=== PATIENT | male | born 1945 | race Caucasian/White ===

== ENCOUNTER 2017-12-25 20:12 | Emergency (ER) | payer OTHER ==
[2017-12-25 20:43] VITALS: BP 143/75
[2017-12-25] MEDS ORDERED: Cephalexin CAP* 500 MG PO ONE ×2 (21:04→21:06)
--- NOTE | 2017-12-25 21:15 | UC ---
Philip Muñoz Natalie, scribed for Asher Rolle MD on 12/25/17 at 2110 . Upper Extremity HPI - HPI Summary HPI Summary: The pt is a 72 y/o M presenting to c/o left fifth finger pain and upper respiratory problems starting 12/24/17. He was working with cardboard on when he noticed tingling, swelling, and redness in his left fifth finger the next day. He also started to have a deep cough and diaphoresis at the same time. The pain is rated 6/10. The patient has treated his finger pain with tea tree oil [employer]. Pt denies sore throat and ear ache. He has an appointment with his PCP tomorrow. - History of Current Complaint Chief Complaint: UCUpperExtremity Stated Complaint: COUGH,FINGER COMPLAINT Time Seen by Provider: 12/25/17 20:50 Hx Obtained From: Patient Onset/Duration: Sudden Onset, Lasting Days - started 12/24/17, Still Present Severity Initially: Moderate Severity Currently: Moderate Pain Intensity: 6 Pain Scale Used: 0-10 Numeric Location Of Pain: Is Discrete @ - left pinky Aggravating Factor(s): Nothing Alleviating Factor(s): Nothing Associated Signs And Symptoms: Positive: Swelling, Redness, Numbness/Tingling, Other - POSITIVE: deep cough, diaphoresis; NEGATIVE: sore throat, ear ache - Allergies/Home Medications Allergies/Adverse Reactions: Allergies Allergy/AdvReac Type Severity Reaction Status Date / Time No Known Allergies Allergy Verified 08/27/16 12:09 PMH/Surg Hx/FS Hx/Imm Hx - Surgical History Surgical History: Yes Surgery Procedure, Year, and Place: 1981 right knee. hernia 2017 - Family History Known Family History: Negative: Cardiac Disease, Diabetes - Social History Alcohol Use: Weekly Alcohol Amount: 1-2 GLASSES WINE DAILY Substance Use Type: None Smoking Status (MU): Never Smoked Tobacco Review of Systems ENT: Other - NEGATIVE: sore throat, ear ache Respiratory: Cough Musculoskeletal: Other: - pain, swelling, and redness in left pinky All Other Systems Reviewed And Are Negative: Yes Physical Exam Triage Information Reviewed: Yes Appearance: Well-Appearing, No Pain Distress Vital Signs: Initial Vital Signs Temp 100.9 F 12/25/17 20:35 Pulse 92 12/25/17 20:35 Resp 16 12/25/17 20:35 BP 143/75 12/25/17 20:35 Pulse Ox 98 12/25/17 20:35 Vital Signs Reviewed: Yes Eye Exam: Normal ENT Exam: Normal Neck: Positive: Supple, Nontender Respiratory: Positive: Other: - CTA, breath sounds present Cardiovascular: Positive: RRR Abdomen Description: Positive: Nontender, Soft Bowel Sounds: Positive: Present Musculoskeletal: Positive: Strength Intact, ROM Intact, Other: - Left fifth finger erythema on dorsal aspect proximal to fingernail, no drainable fluid collection, some swelling of mid fifth finger, no streaking Neurological: Positive: Other: - normal, sensory/motor intact, A&O x3 Psychological: Positive: Other: - affect/mood appropriate Skin: Positive: Other - warm, color reflects adequate perfusion, dry Upper Extremity Course/Dx - Course Course Of Treatment: NO STREAKING OF THE FINGER INFECTION. DISCUSSED GETTING RE EVAL RIGHT AWAY IF THE FINGER INFECTIN WORSENS. - Differential Dx/Diagnosis Provider Diagnoses: LEFT 5TH FINGER CELLULITIS Discharge - Discharge Plan Condition: Stable Disposition: HOME Prescriptions: Cephalexin CAP* [Keflex CAP*] 500 mg PO QID #37 cap Patient Education Materials: Cellulitis (ED) Referrals: [facility] [Outside] Iban Thomas MD [Medical Doctor] - Gabriela Sims MD [Primary Care Provider] - Additional Instructions: FOLLOW UP WITH YOUR DOCTOR. IF YOUR FINGER INFECTION GETS WORSE, FOLLOW UP WITH ORTHOPEDICS OR GO TO THE EMERGENCY DEPARTMENT. GET RECHECKED FOR ANY WORSENING OF YOUR CONDITION OR QUESTIONS OR CONCERNS. The documentation as recorded by the Philip flaherty Natalie accurately reflects the service I personally performed and the decisions made by me, Asher Rolle MD.
== END 2017-12-25 21:28 | disposition home or self-care (01) ==
LOC: UCEAST 20:12
DX: L03.012 Cellulitis of left finger (principal); R05 Cough
CPT/HCPCS: 99212; A9270-GY; G0463

== ENCOUNTER 2017-12-30 18:16 | Emergency (ER) | payer OTHER ==
[2017-12-30 18:47] VITALS: BP 143/74
--- NOTE | 2018-01-03 15:39 | UC ---
Donovan Muñoz Nikita, scribed for Sara Lopez MD on 12/30/17 at 1919 . Respiratory Complaint HPI - HPI Summary HPI Summary: Pleasant 72 yo gentleman c/o cough, ongoing x approx 5 days. Presents today reporting that spouse wanted him to get checked out. No sob perse except with cough. No chest pain. + mild productive, color (), no report of hemoptysis. No rash. No GI issues, although taking abx 4x / day, some loose stool. Abx are 2/2 L 5th finger cellulitis (seen in [facility] 12/25/17, taking cephalexin 50mg po qid). - History of Current Complaint Chief Complaint: UCRespiratory Stated Complaint: RESP COMPLAINT Hx Obtained From: Patient Onset/Duration: Sudden Onset, Lasting Days, Still Present Timing: Constant Severity Currently: None Pain Intensity: 0 Pain Scale Used: 0-10 Numeric Aggravating Factors: Nothing Alleviating Factors: Nothing - Allergies/Home Medications Allergies/Adverse Reactions: Allergies Allergy/AdvReac Type Severity Reaction Status Date / Time No Known Allergies Allergy Verified 12/30/17 18:47 PMH/Surg Hx/FS Hx/Imm Hx - Additional Past Medical History Additional PMH: cataracts, arthritis, shingles Previously Healthy: Yes Endocrine History: Other Other Endocrine History: No DM Cardiovascular History: Other Other Cardiovascular History: heart murmur - Surgical History Surgical History: Yes Surgery Procedure, Year, and Place: 1981 right knee. hernia 2017 - Family History Known Family History: Negative: Cardiac Disease, Diabetes - Social History Alcohol Use: Occasionally Alcohol Amount: 1-2 GLASSES WINE DAILY Substance Use Type: None Smoking Status (MU): Never Smoked Tobacco Review of Systems Constitutional: Fever - subj fever Skin: Negative Eyes: Negative ENT: Sore Throat, Sinus Congestion Respiratory: Cough, Other - denies SOB Cardiovascular: Negative Gastrointestinal: Negative Genitourinary: Negative Motor: Negative Neurovascular: Negative Musculoskeletal: Negative Neurological: Negative Psychological: Negative Is Patient Immunocompromised?: No All Other Systems Reviewed And Are Negative: Yes Physical Exam Triage Information Reviewed: Yes Appearance: Well-Nourished Vital Signs: Initial Vital Signs Temp 97.3 F 12/30/17 18:43 Pulse 93 12/30/17 18:43 Resp 18 12/30/17 18:43 BP 143/74 12/30/17 18:43 Pulse Ox 98 12/30/17 18:43 Vital Signs Reviewed: Yes Eye Exam: Normal ENT: Positive: Other - Dull, gardner, retracted TM; mild erythema and no sores in the throat, airway intact Respiratory: Positive: Chest non-tender, No accessory muscle use, Other: - Rhonchorous cough, wheezing Cardiovascular Exam: Normal Cardiovascular: Positive: Other: - Heart rate regular, good general skin color, good capillary refill Abdominal Exam: Normal Abdomen Description: Positive: Nontender, No Organomegaly, Soft Bowel Sounds: Positive: Present Musculoskeletal Exam: Normal Musculoskeletal: Positive: Strength Intact Neurological: Positive: Other: - nonfocal, grossly intact Psychological: Positive: Other: - conversing easily and appropriately Skin: Positive: Other - no visible or reported rash. L 5th pinky with mild red, swelling c/w improving infection. No fluctuance, no drainage. Good cap refill. + sensation present to LT. UC Diagnostic Evaluation - Laboratory O2 Sat by Pulse Oximetry: 98 Respiratory Course/Dx - Course Course Of Treatment: Pt declines albuterol, will use abx at home (switch to 3 times a day and finish the 10 days of the abx). Pt was offered but declines Rx for albuterol, but will use abx at home (switch to 3 times a day and finish the 10 days of the abx). Pt is recommended to make an appointment with your PCP to check for respiratory recheck, possibly next week, possibly a CXR if Sx still persist. - Differential Dx/Diagnosis Differential Diagnosis/HQI/PQRI: Bronchitis Provider Diagnoses: bronchitis Discharge - Discharge Plan Condition: Stable Disposition: HOME Patient Education Materials: Acute Bronchitis (ED) Referrals: Gabriela Sims MD [Primary Care Provider] - Additional Instructions: Continue current antibiotic (cephalexin). May decrease to three times a day to complete 10 days. Please eat yogurt and / or probiotics daily while taking antibiotics. Please follow up with your primary care phyisican next week for breathing recheck. Seek medical attention for worse or new problems in the meantime. The documentation as recorded by the Donovan flaherty Nikita accurately reflects the service I personally performed and the decisions made by me, Sara Lopez MD.
== END 2017-12-30 20:05 | disposition home or self-care (01) ==
LOC: UCEAST 18:16
DX: J40 Bronchitis, not specified as acute or chronic (principal); R01.1 Cardiac murmur, unspecified
CPT/HCPCS: 99211; G0463

== ENCOUNTER 2019-05-04 11:03 | Emergency (ER) | payer MEDICARE ==
[2019-05-04 11:18] VITALS: BP 119/64
--- NOTE | 2019-05-04 11:47 | UC ---
Respiratory Complaint HPI - HPI Summary HPI Summary: 73 y/o male presents to the urgent care c/o sore throat, hoarseness and productive cough since Saturday05/01/2019. Pt reports symptoms started w/ URI and then worsen Saturday w/ a productive cough w/ clear phlegm. Pt has been taken OTC medication to alleviate symptoms. However he requests a Chest -Ray to make sure he is no developing pneumonia. Pain w/ swallowing is mild 2/10. Pt denies fever, SOB, wheezing, chest pain, abdominal pain, N/V/D. - History of Current Complaint Chief Complaint: UCRespiratory Stated Complaint: CHEST CONGESTION Time Seen by Provider: 05/04/19 11:46 Hx Obtained From: Patient Onset/Duration: Gradual Onset, Lasting Days, Still Present Timing: Intermittent Episodes Severity Initially: Mild Severity Currently: Mild Pain Intensity: 2 - sore throat Pain Scale Used: 0-10 Numeric Character: Cough: Productive, Sputum Description: - clear Aggravating Factors: Recumbent Position Alleviating Factors: OTC Meds Associated Signs And Symptoms: Positive: URI, Nasal Congestion - clear, Hoarseness, Sinus Discomfort. Negative: Fever, Chills, Wheezing - Risk Factors Pulmonary Embolism Risk Factors: Negative Cardiac Risk Factors: Negative Pseudomonas Risk Factors: Negative Tuberculosis Risk Factors: Negative - Allergies/Home Medications Allergies/Adverse Reactions: Allergies Allergy/AdvReac Type Severity Reaction Status Date / Time No Known Allergies Allergy Verified 05/04/19 11:18 PMH/Surg Hx/FS Hx/Imm Hx Previously Healthy: Yes Endocrine History: Hypothyroidism, Dyslipidemia - diet controlled - Surgical History Surgical History: Yes Surgery Procedure, Year, and Place: 1981 right knee. hernia 2017 - Family History Known Family History: Positive: None - Pt denies FMHX Negative: Cardiac Disease, Diabetes - Social History Occupation: Employed Full-time Lives: With Family Alcohol Use: Occasionally Alcohol Amount: 1-2 GLASSES WINE DAILY Substance Use Type: None Smoking Status (MU): Never Smoked Tobacco Review of Systems All Other Systems Reviewed And Are Negative: Yes Constitutional: Positive: Negative Skin: Positive: Negative Eyes: Positive: Negative ENT: Positive: Sore Throat - mild, Nasal Discharge - clear, Sinus Congestion, Other - moderate PND Respiratory: Positive: Cough - producitve w/ clear phlegm Cardiovascular: Positive: Negative Gastrointestinal: Positive: Negative Genitourinary: Positive: Negative Motor: Positive: Negative Neurovascular: Positive: Negative Musculoskeletal: Positive: Negative Neurological: Positive: Negative Psychological: Positive: Negative Is Patient Immunocompromised?: No Physical Exam - Summary Physical Exam Summary: VITAL SIGNS: Reviewed. GENERAL: Patient is a well developed and nourished female who is sitting comfortable in the examining table. Patient is not in any acute respiratory distress. HEAD AND FACE: No signs of trauma. No ecchymosis, hematomas or skull depressions. No sinus tenderness. EYES: PERRLA, EOMI x 2, No injected conjunctiva, no nystagmus. No photophobia. EARS: Hearing grossly intact. Ear canals and tympanic membranes are within normal limits. MOUTH: pharynx with no erythema, no exudates, No B/L tonsillar enlargement with no exudate. Uvula in midline. Clear PND NECK: Supple, trachea is midline, Positive anterior cervical lymphadenopathy, no JVD, no carotid bruit, no c-spine tenderness, neck with full ROM. No meningeal signs, no Kernig's or brudzinskis signs. CHEST: Symmetric, no tenderness at palpation LUNGS: Clear to auscultation bilaterally. No wheezing or crackles. CVS: Regular rate and rhythm, S1 and S2 present, no murmurs or gallops appreciated. ABDOMEN: Soft, non-tender. No signs of distention. No rebound no guarding, and no masses palpated. Bowel sounds are normal. EXTREMITIES: FROM in all major joints, no edema, no cyanosis or clubbing. NEURO: Alert and oriented x 3. No acute neurological deficits. Speech is normal and follows commands. SKIN: Dry and warm Triage Information Reviewed: Yes Vital Signs: Initial Vital Signs Temp 97.3 F 05/04/19 11:13 Pulse 92 05/04/19 11:13 Resp 18 05/04/19 11:13 BP 119/64 05/04/19 11:13 Pulse Ox 97 05/04/19 11:13 Respiratory Course/Dx - Course Course Of Treatment: 73 y/o male presents to the urgent care c/o sore throat, hoarseness and productive cough since Saturday05/01/2019. Pt reports symptoms started w/ URI and then worsen Saturday w/ a productive cough w/ clear phlegm. Pt has been taken OTC medication to alleviate symptoms. However he requests a Chest -Ray to make sure he is no developing pneumonia. Pain w/ swallowing is mild 2/10. Pt denies fever, SOB, wheezing, chest pain, abdominal pain, N/V/D. Hx obtained. Pt with an upper respiratory infection of examination. However he insisted on chest X-ray. Chest X-ray order; no acute cardiopulmonary disease observed as per radiologist. Pt Rx Tessalon tabs PO as directed below to alleviate cough. Pt advised to increase fluid intake, rest and eat well, Rx Ibuprofen, Tessalon PO to alleviate symptoms. D/C instructions explained. Pt understood and agreed with D/C instructions. - Differential Dx/Diagnosis Differential Diagnosis/HQI/PQRI: Asthma, Bronchitis, Influenza, Laryngitis, Lower Resp Infection, Sinusitis, Other - URI, pharyngitis Provider Diagnosis: Upper respiratory infection Discharge - Sign-Out/Discharge Documenting (check all that apply): Patient Departure - D/C home All imaging exams completed and their final reports reviewed: Yes - Discharge Plan Condition: Stable Disposition: HOME Prescriptions: Benzonatate CAP* [Tessalon 100 MG CAP*] 100 mg PO TID PRN #21 cap PRN Reason: Cough Patient Education Materials: Upper Respiratory Infection (ED) Referrals: Gabriela Sims MD [Primary Care Provider] - Additional Instructions: 1- Take Tessalon tabs PO to alleviate cough as directed. 2-Please take ibuprofen PO q6-8hrs prn as instructed after meals to alleviate pain and swelling. Increase fluid intake, eat well, rest and avoid strenuous exercise 3-If symptoms do not improve or worsen please return to the urgent care or f/u with your PCP in 3 days for further evaluation and treatment. - Billing Disposition and Condition Condition: STABLE Disposition: Home
== END 2019-05-04 12:50 | disposition home or self-care (01) ==
LOC: UCEAST 11:03
DX: J06.9 Acute upper respiratory infection, unspecified (principal)
CPT/HCPCS: 71046; 99212; G0463

== ENCOUNTER 2019-05-22 18:16 | Emergency (ER) | payer MEDICARE ==
[2019-05-22 18:32] VITALS: BP 157/86
--- NOTE | 2019-05-22 19:39 | UC ---
Back Pain HPI - HPI Summary HPI Summary: 73 y/o male presents to the urgent care c/o lower back pain for he past week s/ p heavy lifting. Pt states he has chronic back pain, but since he is moving he started to move some boxes and his lower back pain was exacerbated. pain sharp w/ certain movement, 6/10 radiating to his thighs, worse w/ laying . He has been taking Aleve once daily to alleviate pain. Today pain worsen sine he started to feel a tingling sensation over his thighs at times which resolved now. Pt states Hx of Constipation and he was constipated, so he was advised by to drink water w/ salt daily to triggered a BM which it did since he has been doing a BM daily for the past 3 days. Pt noticed this morning his B/L feet are swollen, but no painful. He was recently seen by his PCP 1 week ago for URI and Dx w/ allergic rhinitis and Rx Loratadine, Fluticasone nasal spray which has improved. But he called today and was advised to stop these medications and come to the urgent care. Pt deneis saddle anesthesia, urinary or fecal incontinence today, flank pain, fever, SOB, chest pain, abdominal pain, N/V/D. - History of Current Complaint Chief Complaint: UCBackPain Stated Complaint: SWOLLEN FEET, AND BACK INJURY Time Seen by Provider: 05/22/19 19:28 Hx Obtained From: Patient Onset/Duration: Gradual Onset, Lasting Weeks - 1 week, Still Present, Worse Since - yesterday Timing: Intermittent, Lasting Minutes Severity Initially: Mild Severity Currently: Moderate Pain Intensity: 6 Pain Scale Used: 0-10 Numeric Back Pain: Is Discrete @ - lower back, Radiates To - B/L thighs Character: Sharp - w/ certain movement, Spasmodic Aggravating Factor(s): Movement, Lifting, Bending Alleviating Factor(s): Rest, OTC Meds - Naproxen PO daily Associated Signs And Symptoms: Positive: Tingling - B/L thighs. Negative: Swelling, Redness, Bruising, Fever, Weakness, Numbness, Abdominal Pain, Flank Pain, Bladder Incontinence, Bowel Incontinence, Weight Loss, Pain with Weight Bearing Related History: Similar Episode Dx As - Degenerative disc disease - Risk Factors AAA Risk Factors: Negative TAD Risk Factors: Negative Cauda Equina Risk Factors: Negative Epidural Abscess Risk Factors: Negative - Allergies/Home Medications Allergies/Adverse Reactions: Allergies Allergy/AdvReac Type Severity Reaction Status Date / Time No Known Allergies Allergy Verified 05/22/19 18:32 Home Medications: Home Medications Naproxen Sodium [Aleve] 220 mg PO BID PRN 05/22/19 [History Confirmed 05/22/19] PMH/Surg Hx/FS Hx/Imm Hx Previously Healthy: Yes - Pt denies PMHX - Surgical History Surgical History: Yes Surgery Procedure, Year, and Place: 1981 right knee. hernia 2017 - Family History Known Family History: Positive: Hypertension Negative: Cardiac Disease, Diabetes - Social History Occupation: Employed Full-time Lives: With Family Alcohol Use: Occasionally Alcohol Amount: 1-2 GLASSES WINE DAILY Substance Use Type: None Smoking Status (MU): Never Smoked Tobacco Review of Systems All Other Systems Reviewed And Are Negative: Yes Constitutional: Positive: Negative Skin: Positive: Negative Eyes: Positive: Negative ENT: Positive: Negative Respiratory: Positive: Negative Cardiovascular: Positive: Negative Gastrointestinal: Positive: Negative Genitourinary: Positive: Negative Motor: Positive: Negative Neurovascular: Positive: Negative Musculoskeletal: Positive: Decreased ROM - lower back, Other: - lower back pain radiating to both thighs s/p heavy lifiting Neurological: Positive: Other - tingling sensation over both thighs this morning which resolved now Psychological: Positive: Negative Is Patient Immunocompromised?: No Physical Exam - Summary Physical Exam Summary: Vital Signs Reviewed: Yes Appearance: Well-Appearing, Well-Nourished, male sitting in the examining table w/o any apparent distress. Eyes: Positive: Conjunctiva Clear - PERRLA, EOMI. ENT: Positive: Normal ENT inspection, Hearing grossly normal, Pharynx normal, TMs normal, Uvula midline Neck: Positive: Supple, Nontender, No Lymphadenopathy Respiratory: Positive: Chest non-tender, Lungs clear, Normal breath sounds, No respiratory distress Cardiovascular: Positive: RRR, No Murmur, Pulses Normal, Brisk Capillary Refill Abdomen Description: Positive: Nontender, No Organomegaly, Soft. Negative: CVA Tenderness (R), CVA Tenderness (L) Bowel Sounds: Positive: Present Musculoskeletal: Positive: Strength Intact, BACK: Patient walked into the urgent care room with symmetric ambulation, No signs of limping, antalgic, able to bear weight. No signs of trauma, No masses palpated. Point tenderness at the level of L2-S1, No CVAT, b/l paraspinal muscle tenderness and spasm at the same level, no flank ecchymosis . No sacroiliac notch tenderness, No saddle anesthesia.ROM: limited due to pain, Straight Leg Raise: positive. Patellar reflexes: brisk, symmetric Muscle strength lower extremities. Dorsiflexion/ plantar flexion of ankles. Heel/ toe walk. Lower extremities: Femoral, popliteal , posterior tibial, and dorsalis pedis pulses WNL. Pt refuse rectal exam Neurological: Positive: Alert, Muscle Tone Normal Psychological Exam: Normal Skin Exam: Normal Triage Information Reviewed: Yes Vital Signs: Initial Vital Signs Temp 98.8 F 05/22/19 18:27 Pulse 72 05/22/19 18:27 Resp 12 05/22/19 18:27 BP 157/86 05/22/19 18:27 Pulse Ox 99 05/22/19 18:27 Back Pain Course/Dx - Course Course Of Treatment: 73 y/o male presents to the urgent care c/o lower back pain for he past week s/ p heavy lifting. Pt states he has chronic back pain, but since he is moving he started to move some boxes and his lower back pain was exacerbated. pain sharp w/ certain movement, 6/10 radiating to his thighs, worse w/ laying . He has been taking Aleve once daily to alleviate pain. Today pain worsen sine he started to feel a tingling sensation over his thighs at times which resolved now. Pt states Hx of Constipation and he was constipated, so he was advised by to drink water w/ salt daily to triggered a BM which it did since he has been doing a BM daily for the past 3 days. Pt noticed this morning his B/L feet are swollen, but no painful. He was recently seen by his PCP 1 week ago for URI and Dx w/ allergic rhinitis and Rx Loratadine, Fluticasone nasal spray which has improved. But he called today and was advised to stop these medications and come to the urgent care. Pt deneis saddle anesthesia, urinary or fecal incontinence today, flank pain, fever, SOB, chest pain, abdominal pain, N/V/D. Hx obtained. Pt is hemodynamically stable, Vital WNL, O2Sat: 99%, Pt Pt w/ Point tenderness at the level of L2-S1, B/L paraspinal muscle tenderness and spasm at the same level. No CVAT, no flank ecchymosis on examination. Lumbosacral X-ray ordered, Impression: No radiographic evidence for traumatic injury. lumbar degenerative disc disease and possible spondylosis and facet joint osteoarthritis. However, Pt told fianl radiology reports will be done tomorrow and if other abnormal finding, he will be notified for further management. Pt educated on DDD and ostearthritis and explained the possibility of compression around L5 and the importance to f/u w/ Spinal DR for further management. Naproxen PO ordered at the clinic. Given by nurse. Pt tolerated well medication pain decrease. Pt Rx flexeril PO and Medrol dose rick as directed below. Patient was instructed to wear a back support and to f/u wit Spinal Nurse Navigator for further management on her Degenerative spondylolysis. Patient is able to ambulate freely w/o aid or limp.Pt's BP is elevated today advised to decrease salt in diet, monitor BP and f/u with PCP for further management. Plan of care was discussed with the patient and patient understands and agrees. All questions were answered at patient satisfaction. Pt left clinic hemodynamically stable and ambulating. . - Differential Dx/Diagnosis Differential Diagnosis/HQI/PQRI: Arthritis, Compressive Cord Syndrome, Herniated Disc, Renal Colic, Strain, Sprain, Other - edema Provider Diagnosis: Low back strain, Degenerative disc disease, lumbar, Bilateral swelling of feet , Elevated BP without diagnosis of hypertension Discharge - Sign-Out/Discharge Documenting (check all that apply): Patient Departure - D/c home All imaging exams completed and their final reports reviewed: No - Discharge Plan Condition: Stable Disposition: HOME Prescriptions: Cyclobenzaprine TAB* [Flexeril 10 MG TAB*] 10 mg PO TID PRN #21 tab PRN Reason: Spasms - Back methylPREDNISolone [Medrol Dosepak 4 MG*] 4 mg PO .SEE RICK INSTRUCTION #1 rick Patient Education Materials: Muscle Spasm (ED), Degenerative Disc Disease (ED) Referrals: Gabriela Sims MD [Primary Care Provider] - 3 Days Shabana Kline Ae RN [Registered Nurse] - 3 Days Additional Instructions: 1- Continue taking Naproxen PO as directed after meals for pain. Medrol dose rick as directed to alleviate symptoms 2- Take Flexeril PO as directed for muscle spasm. Please do not drive while taking the medication. 3- Avoid strenuous exercise or heavy lifting. Please wear a back support 4- Please call Spinal Nurse Navigator: Elen Kline: [phone] for further management of your Degenerative disc disease and herniated discs. 5- Final radiology reports will be done tomorrow, you will be notified of any abnormal result. 6- Please elevate your feet and stop taking salt water. F/u w/ your PCP for further management 7- Your BP is elevated today. please decrease salt in your diet, monitor BP and if it continues to be elevated please f/u with your PCP for further management. - Billing Disposition and Condition Condition: STABLE Disposition: Home - Attestation Statements Provider Attestation: I was available for consult. This patient was seen by the LUIS ANGEL. The patient was not presented to, seen by, or examined by me. -Yvonne
[2019-05-22] MEDS ORDERED: Naproxen TAB* 250 MG PO ONE (19:55)
--- NOTE | 2019-05-23 09:25 | UC ---
- Progress Note Progress Note: Patient Name: ARMAND OGLESBY JR Medical Record#: [id number] Ordering Physician: Shyann SKELTON Acct.#: [id number] : 1945 Age: 73 Sex: M Location: [facility] Exam Date: 05/22/191956 ADM Status: DEP ER Order Information: SP LUMBARSACRAL 4+ VWS Accession Number: [id number] CPT: 08794 Indication: Acute lower back pain following heavy lifting. Decreased range of motion. Comparison: May 07, 2016 CT Technique: AP, lateral, and oblique views lumbar sacral spine. Report: Bone density appears decreased throughout. Unchanged osteoporotic compression fracture involving the superior endplate of the L3 vertebral body without significant associated global loss of height of the vertebral body. Mild anterior column compression fracture of the T12 vertebral body is new compared with the May 07, 2016 CT without compelling acute features. This fracture is unchanged compared with a chest radiograph from May 04, 2019. Multilevel degenerative spondylosis and facet joint osteoarthritis increasing in severity extending caudal. Disc space narrowing is severe at L5-S1. Unremarkable paraspinal soft tissue contours. Aortoiliac vascular calcifications. IMPRESSION: #. Negative for acute fracture. #. Degenerative spondylosis and facet joint osteoarthritis. R0 Preliminary Imaging Read R0 <Electronically signed by Peyman Jimenez MD in OV> 1945 Dictated By: Peyman Jimenez MD Dictated Date/Time: 1945 Transcribed Date/Time: 05/23/19 0843 Copy to: CC:Veronica Santizo MD; Shyann SKELTON; Gabriela Sims MD Imaging - [facility] Imaging [facility] Urgent [facility] [place] [address] This report is only to be considered final once signed by the Provider(s) as displayed in the "<Electronically Signed by >" field (s). Absence of a signature indicates the report is in a draft status and still needs to be finalized. In the event this document was created by someone other than the signing Provider, the individual initiating the document will be listed in the "Entered by:" or "Dictated by:" eaton. 1 of 2 Course/Dx - Diagnoses Provider Diagnoses: Low back strain, Degenerative disc disease, lumbar, Bilateral swelling of feet Discharge - Sign-Out/Discharge Documenting (check all that apply): Post-Discharge Follow Up All imaging exams completed and their final reports reviewed: Yes - Discharge Plan Condition: Stable Disposition: HOME Prescriptions: Cyclobenzaprine TAB* [Flexeril 10 MG TAB*] 10 mg PO TID PRN #21 tab PRN Reason: Spasms - Back methylPREDNISolone [Medrol Dosepak 4 MG*] 4 mg PO .SEE RICK INSTRUCTION #1 rick Patient Education Materials: Muscle Spasm (ED), Degenerative Disc Disease (ED) Referrals: Gabriela Sims MD [Primary Care Provider] - 3 Days Shabana Kline Ae, RN [Registered Nurse] - 3 Days Additional Instructions: 1- Continue taking Naproxen PO as directed after meals for pain. Medrol dose rick as directed to alleviate symptoms 2- Take Flexeril PO as directed for muscle spasm. Please do not drive while taking the medication. 3- Avoid strenuous exercise or heavy lifting. Please wear a back support 4- Please call Spinal Nurse Navigator: Elen Kline: [phone] for further management of your Degenerative disc disease and herniated discs. 5- Final radiology reports will be done tomorrow, you will be notified of any abnormal result. 6- Please elevate your feet and stop taking salt water. F/u q/ your PCP for further management 7- Your BP is elevated today. please decrease salt in your diet, monitor BP and if it continues to be elevated please f/u with your PCP for further management. - Billing Disposition and Condition Condition: STABLE Disposition: Home
--- NOTE | 2019-05-24 13:09 | UC ---
- Progress Note Progress Note: 05/24/2019 I spoke to Mr Arzate over the phone and I explained the Lumbar X-rays results with him. Héctor Arzate is feeling better and B/L feet swelling has resolved completely. I explained the importance to f/u w/ Spinal Navigator w/ get a soon appt w/ Spinal DR for further evaluation and treatment in his spinal compression which have never been evaluated before. Mr Arzate states his BM are normal now, but he would like a Rx of Miralax PO to regulate BM. Miralax was sent to pharmacy, Shyann Gee PA-C Course/Dx - Diagnoses Provider Diagnoses: Low back strain, Degenerative disc disease, lumbar, Bilateral swelling of feet , Elevated BP without diagnosis of hypertension Discharge - Sign-Out/Discharge Documenting (check all that apply): Post-Discharge Follow Up All imaging exams completed and their final reports reviewed: No - Discharge Plan Condition: Stable Disposition: HOME Prescriptions: Cyclobenzaprine TAB* [Flexeril 10 MG TAB*] 10 mg PO TID PRN #21 tab PRN Reason: Spasms - Back methylPREDNISolone [Medrol Dosepak 4 MG*] 4 mg PO .SEE RICK INSTRUCTION #1 rick Polyethylene Glycol 3350* [Miralax*] 17 gm PO DAILY #1 bottle Patient Education Materials: Muscle Spasm (ED), Degenerative Disc Disease (ED) Referrals: Gabriela Sims MD [Primary Care Provider] - 3 Days Shabana Kline Ae, RN [Registered Nurse] - 3 Days Additional Instructions: 1- Continue taking Naproxen PO as directed after meals for pain. Medrol dose rick as directed to alleviate symptoms 2- Take Flexeril PO as directed for muscle spasm. Please do not drive while taking the medication. 3- Avoid strenuous exercise or heavy lifting. Please wear a back support 4- Please call Spinal Nurse Navigator: Elen Kline: [phone] for further management of your Degenerative disc disease and herniated discs. 5- Final radiology reports will be done tomorrow, you will be notified of any abnormal result. 6- Please elevate your feet and stop taking salt water. F/u w/ your PCP for further management 7- Your BP is elevated today. please decrease salt in your diet, monitor BP and if it continues to be elevated please f/u with your PCP for further management. - Billing Disposition and Condition Condition: STABLE Disposition: Home - Attestation Statements Provider Attestation: I was available for consult. This patient was seen by the LUIS ANGEL. The patient was not presented to, seen by, or examined by me. -Yvonne
== END 2019-05-22 21:03 | disposition home or self-care (01) ==
LOC: UCEAST 18:16
DX: S39.012A Strain of muscle, fascia and tendon of lower back, initial encounter (principal); X58.XXXA Exposure to other specified factors, initial encounter; Y92.9 Unspecified place or not applicable; M51.36 Other intervertebral disc degeneration, lumbar region; R22.43 Localized swelling, mass and lump, lower limb, bilateral; R03.0 Elevated blood-pressure reading, without diagnosis of hypertension
CPT/HCPCS: 72110; 99212; A9270-GY; G0463

== ENCOUNTER 2022-05-11 06:05 | Observation (INO) ==
[~2022-05-11 06:05] MED LIST: Buffered Lidocaine 1% SYRIN 1 ml INTRADERM ONE; Famotidine IV 10 MG/ML 2 ml VIAL (20 mg) IV ONE; Lactated Ringers 1000 ml BAG 1,000 ML IV SCH
[2022-05-11] MEDS ORDERED: ceFAZolin 2 GM PREMIX 2 GM/50 ML BAG ONE (06:11)
[2022-05-11] MEDS ORDERED: Famotidine IV 10 MG/ML 2 ml VIAL (20 mg) ONE (06:21)
[2022-05-11] MEDS ORDERED: Rocuronium 50 mg VIAL 10 mg/ml 5 ml VIAL (50 mg) ONE (07:05)
[2022-05-11] MEDS ORDERED: Dexamethasone IV 4 MG/ML VIAL 1 ml VIAL ONE (07:05)
[2022-05-11] MEDS ORDERED: fentaNYL 250 mcg/5 ml 50 MCG/ML 5 ml VIAL (250 MCG) ONE (07:05)
[2022-05-11] MEDS ORDERED: Propofol 10 MG/ML 20 ML BTL ONE (07:05)
[2022-05-11] MEDS ORDERED: Ondansetron 4 mg VIAL 2 MG/ML 2 ml VIAL ONE (07:05)
[2022-05-11] MEDS ORDERED: Midazolam 2 mg/2 ml VIAL 1 mg/ml 2 ml VIAL (2 mg) ONE (07:05)
[2022-05-11] MEDS ORDERED: ROPIVACAINE 5 MG/ML 30 ML BTL (0.5%) ONE (07:47)
[2022-05-11] MEDS ORDERED: Acetaminophen IV 1 GM/100ML 100 ML IV ONE (08:00)
[2022-05-11] MEDS ORDERED: Phenylephrine IV 10 MG/ML 1 ml VIAL ONE (08:20)
[2022-05-11] MEDS ORDERED: HYDROmorphone 0.5 MG/0.5 ML SYRINGE ONE (09:08)
[2022-05-11] MEDS ORDERED: Magnesium Hydroxide LIQ 30 ML UDC PO PRN (09:28)
[2022-05-11] MEDS ORDERED: Lactulose 30 ml UDC PO PRN (09:28)
[2022-05-11] MEDS ORDERED: Ondansetron 4 mg VIAL 2 MG/ML 2 ml VIAL IV PRN (09:28)
[2022-05-11] MEDS ORDERED: Ondansetron ODT 4 mg TAB 4 MG TAB PO PRN (09:28)
[2022-05-11] MEDS ORDERED: Morphine 4 MG/ML VIAL (1 ml) IV PRN (09:28)
[2022-05-11] MEDS ORDERED: Sevoflurane BOTTLE ONE (09:59)
[2022-05-11] MEDS ORDERED: Lactated Ringers 1000 ml BAG 1,000 ML IV SCH (10:00)
[2022-05-11] MEDS ORDERED: Morphine 4 MG/ML VIAL (1 ml) ONE (10:46)
[2022-05-11] MEDS ORDERED: Naloxone 0.4 mg VIAL 0.4 mg/ml 1 ml VIAL IV PRN (10:58)
[2022-05-11] MEDS ORDERED: fentaNYL 100 mcg/2 ml 50 MCG/ML VIAL IV PRN (10:58)
[2022-05-11] MEDS ORDERED: Clindamycin 600 MG/D5W BAG 600 MG/50 ML BAG IV SCH (16:00)
[2022-05-11 16:05] VITALS: BP 114/68
[2022-05-11] MEDS ORDERED: Magnesium Hydroxide LIQ 30 ML UDC PO SCH (21:00)
[2022-05-12] MEDS ORDERED: Vitamin THERAPEUTIC TAB PO SCH (09:00)
== END 2022-05-11 17:30 | disposition home or self-care (01) ==
LOC: AA 06:05 → INTOOBSV 06:05 → SSU 12:30
PROVIDERS: ADMIT Orthopaedic Surgery Adult Reconstructive Orthopaedic Surgery; ATTEND Orthopaedic Surgery Adult Reconstructive Orthopaedic Surgery

== ENCOUNTER 2022-05-12 10:20 | Inpatient (IN) ==
[2022-05-12 11:27] LABS: ABS Lymphocytes 0.6 10^3/ul (1.0-4.8); ABS Monocytes 1.3 10^3/ul (0-0.8); ABS Neutrophils 5.8 10^3/ul (1.5-7.7); Eosinophil % 0.2 %; Hematocrit 31 % (42-52); Hemoglobin 10.3 g/dL (14.0-18.0); Lymphocyte % 7.3 %; Mean Corpuscular HGB Conc 34 g/dL (31-36); Mean Corpuscular Hemoglobin 31 pg (27-31); Mean Corpuscular Volume 92 fL (80-94); Mean Platelet Volume 7.7 fL (7.4-10.4); Platelet Count 235 10^3/uL (150-450); Red Blood Count 3.34 10^6 /uL (4.18-5.48); Red Cell Distribution Width 16 % (10-15); White Blood Count 7.7 10^3/uL (3.5-10.8)
[2022-05-12 11:39] LABS: Activated Partial Thrombo Time 31.3 seconds (26.0-38.0); INR 1.39 (0.86-1.15)
[2022-05-12 11:56] LABS: Albumin 3.3 g/dL (3.2-5.2); Albumin/Globulin Ratio 1.1 (1-3); Calcium 8.4 mg/dL (8.6-10.3); Globulin 3.1 g/dL (2-4); Potassium 4.1 mmol/L (3.5-5.0); Total Bilirubin 0.8 mg/dL (0.2-1.0); Total Protein 6.4 g/dL (6.4-8.9); eGFR CKD-EPI 60.8 (>60)
[2022-05-12 12:51] LABS: High Sensitivity Troponin 1 Hr 11 pg/mL (<20)
[2022-05-12] MEDS ORDERED: Ondansetron 4 mg VIAL 2 MG/ML 2 ml VIAL IV ONE (13:34)
[2022-05-12] MEDS ORDERED: NS 0.9% 1000 ml BAG 1,000 ML IV ONE (13:34)
[2022-05-12] MEDS ORDERED: Morphine 4 MG/ML VIAL (1 ml) IV ONE (14:19)
[2022-05-12] MEDS ORDERED: Al Hydrox/Mg Hydrox/Simet LIQ 30 ML UDC PO PRN (17:37)
[2022-05-12] MEDS ORDERED: Magnesium Hydroxide LIQ 30 ML UDC PO PRN (17:37)
[2022-05-12] MEDS ORDERED: Ondansetron 4 mg VIAL 2 MG/ML 2 ml VIAL IV PRN (17:37)
[2022-05-12] MEDS ORDERED: Morphine 2 MG/ML SYRINGE IV PRN (17:42)
[2022-05-12] MEDS ORDERED: NS 0.9% 1000 ml BAG 1,000 ML IV SCH (17:45)
[2022-05-12 17:47] LABS: Urine Appearance Clear; Urine Bilirubin Negative (Negative); Urine Blood 1+ (Negative); Urine Color Straw; Urine Glucose Negative (Negative); Urine Ketones Negative (Negative); Urine Nitrite Negative (Negative); Urine Protein Negative (Negative); Urine Specific Gravity 1.005 (1.002-1.030); Urine Urobilinogen Negative (Negative)
[2022-05-12 17:53] LABS: Urine Bacteria Absent (Absent); Urine Red Blood Cell Trace(0-2/hpf) (Absent); Urine White Blood Cell Trace(0-5/hpf) (Absent)
[2022-05-13 06:59] LABS: ABS Eosinophils 0.1 10^3/ul (0-0.6); ABS Lymphocytes 0.6 10^3/ul (1.0-4.8); ABS Monocytes 1.2 10^3/ul (0-0.8); ABS Neutrophils 5.3 10^3/ul (1.5-7.7); Hematocrit 26 % (42-52); Hemoglobin 8.8 g/dL (14.0-18.0); Lymphocyte % 8.6 %; Mean Corpuscular HGB Conc 34 g/dL (31-36); Mean Corpuscular Hemoglobin 31 pg (27-31); Mean Corpuscular Volume 93 fL (80-94); Mean Platelet Volume 7.7 fL (7.4-10.4); Platelet Count 194 10^3/uL (150-450); Red Blood Count 2.83 10^6 /uL (4.18-5.48); Red Cell Distribution Width 15 % (10-15); White Blood Count 7.3 10^3/uL (3.5-10.8)
[2022-05-13] MEDS: Polyethylene Glycol 3350 17 GM PACKET PO PRN (07:50)
[2022-05-13 07:55] LABS: Calcium 7.7 mg/dL (8.6-10.3); Potassium 4.1 mmol/L (3.5-5.0); eGFR CKD-EPI 66.7 (>60)
[2022-05-14] MEDS: Polyethylene Glycol 3350 17 GM PACKET PO PRN (04:32)
[2022-05-14 06:01] LABS: ABS Eosinophils 0.2 10^3/ul (0-0.6); ABS Lymphocytes 0.7 10^3/ul (1.0-4.8); ABS Monocytes 1.1 10^3/ul (0-0.8); ABS Neutrophils 4.9 10^3/ul (1.5-7.7); Hematocrit 25 % (42-52); Hemoglobin 8.3 g/dL (14.0-18.0); Lymphocyte % 10.6 %; Mean Corpuscular HGB Conc 33 g/dL (31-36); Mean Corpuscular Hemoglobin 31 pg (27-31); Mean Corpuscular Volume 94 fL (80-94); Mean Platelet Volume 8.2 fL (7.4-10.4); Platelet Count 189 10^3/uL (150-450); Red Blood Count 2.68 10^6 /uL (4.18-5.48); Red Cell Distribution Width 16 % (10-15)
[2022-05-14 12:38] VITALS: BP 108/49
== END 2022-05-14 12:50 | disposition home or self-care (01) | DRG 948 ==
LOC: ED 10:20 → EDHOLD 17:37 → SSU 20:48
PROVIDERS: ADMIT Pediatrics; ATTEND Orthopaedic Surgery Adult Reconstructive Orthopaedic Surgery

== ENCOUNTER 2023-07-21 18:00 | Inpatient (IN) ==
[2023-07-21 18:27] LABS: ABS Basophils 0.1 10^3/uL (0.0-0.1); ABS Eosinophils 0.2 10^3/uL (0.0-0.5); ABS Lymphocytes 1.9 10^3/uL (1.0-4.8); ABS Monocytes 1.1 10^3/uL (0.0-1.1); ABS Neutrophils 5.2 10^3/uL (1.5-7.6); Eosinophil % 2.2 %; Hematocrit 41.1 % (38-53); Hemoglobin 13.9 g/dL (13.2-16.3); Lymphocyte % 22.4 %; Mean Corpuscular Hemoglobin 32.1 pg (27-33); Mean Corpuscular Hgb Conc 33.7 g/dL (31-36); Mean Corpuscular Volume 95.3 fL (80-97); Mean Platelet Volume 8.1 fL (7.5-11.2); Platelet Count 266 10^3/uL (150-450); Red Blood Count 4.32 10^6/uL (4.06-5.63); Red Cell Distribution Width 15.2 % (12-17); White Blood Count 8.4 10^3/uL (3.6-10.2)
[2023-07-21 18:31] LABS: INR 0.98 (0.83-1.13)
[2023-07-21 18:44] LABS: Albumin 3.7 g/dL (3.2-5.2); Calcium 8.7 mg/dL (8.6-10.3); Creatinine, Serum 1.53 mg/dL (0.67-1.17); Globulin 3.8 g/dL (2-4); Magnesium 1.8 mg/dL (1.9-2.7); Total Bilirubin 0.4 mg/dL (0.2-1.0); Total Protein 7.5 g/dL (6.4-8.9); eGFR CKD-EPI 46.5 (>60)
[2023-07-21] MEDS ORDERED: Magnesium Sulfate 2 gm BAG 2 GM/50 ML BAG IVPB ONE (18:55)
[2023-07-21 20:05] LABS: High Sensitivity Troponin 1 Hr 26 pg/mL (<20)
[2023-07-21] MEDS ORDERED: NS 0.9% 1000 ml BAG 1,000 ML IV SCH (23:55)
[2023-07-22 04:47] LABS: ALT 182 U/L (7-52); Albumin 3.3 g/dL (3.2-5.2); Albumin/Globulin Ratio 0.9 (1-3); Alkaline Phosphatase 114 U/L (35-149); Blood Urea Nitrogen 32 mg/dL (6-24); CO2 Carbon Dioxide 17 mmol/L (22-32); Calcium 8.3 mg/dL (8.6-10.3); Chloride 101 mmol/L (101-111); Creatinine, Serum 1.25 mg/dL (0.67-1.17); Globulin 3.5 g/dL (2-4); Glucose 104 mg/dL (70-100); Magnesium 2.3 mg/dL (1.9-2.7); Sodium 128 mmol/L (135-145); Total Protein 6.8 g/dL (6.4-8.9); eGFR CKD-EPI 59.3 (>60)
[2023-07-22 05:00] LABS: Anion Gap 10 mmol/L (2-16)
[2023-07-22] MEDS ORDERED: Ondansetron 4 mg VIAL 2 MG/ML 2 ml VIAL IV PRN (06:12)
[2023-07-22] MEDS ORDERED: fentaNYL 100 mcg/2 ml 50 MCG/ML VIAL IV SLOW PU ONE (07:32)
[2023-07-22] MEDS ORDERED: Midazolam 10 mg/10 ml VIAL 1 mg/ml 10 ml VIAL (10 mg) IV SLOW PU ONE (07:32)
[2023-07-22] MEDS ORDERED: ceFAZolin 2 GM in NS PREMIX 2 GM/100 ML BAG IVPB ONE (08:00)
[2023-07-22] MEDS ORDERED: ceFAZolin SYR FLUSH 1 GM/10 ML for pocket flush (cardiology) FLUSH ONE (08:00)
[2023-07-22] MEDS ORDERED: Sulfur Hexaflouride MICROSPHR 25 MG VIAL ONE (09:32)
[2023-07-22] MEDS ORDERED: Lidocaine 1% VIAL 10 MG/ML 30 ML VIAL ONE (10:07)
[2023-07-22] MEDS ORDERED: Midazolam 5 mg/5 ml VIAL 1 mg/ml 5 ml VIAL (5 mg) ONE (10:17)
[2023-07-22] MEDS ORDERED: fentaNYL 100 mcg/2 ml 50 MCG/ML VIAL ONE (10:17)
[2023-07-22] MEDS ORDERED: Phenol 1.4% Throat Spray BTL MT PRN (13:35)
[2023-07-22 16:12] LABS: Potassium Redraw 4.2 mmol/L (3.5-5.0)
[2023-07-22] MEDS: ceFAZolin VIAL 1 GM in NS 0.9% 50 ML 50 ML IVPB SCH (20:30)
[2023-07-23] MEDS: ceFAZolin VIAL 1 GM in NS 0.9% 50 ML 50 ML IVPB SCH ×2 (05:03→12:34)
[2023-07-23 06:01] LABS: ABS Eosinophils 0.2 10^3/uL (0.0-0.5); ABS Lymphocytes 0.9 10^3/uL (1.0-4.8); ABS Monocytes 1.3 10^3/uL (0.0-1.1); Eosinophil % 2.3 %; Hematocrit 38.1 % (38-53); Hemoglobin 13.1 g/dL (13.2-16.3); Lymphocyte % 9.4 %; Mean Corpuscular Hemoglobin 32.2 pg (27-33); Mean Corpuscular Hgb Conc 34.5 g/dL (31-36); Mean Corpuscular Volume 93.4 fL (80-97); Platelet Count 238 10^3/uL (150-450); Red Blood Count 4.08 10^6/uL (4.06-5.63); Red Cell Distribution Width 14.7 % (12-17); White Blood Count 9.5 10^3/uL (3.6-10.2)
[2023-07-23 06:18] LABS: Calcium 7.9 mg/dL (8.6-10.3); Creatinine, Serum 1.11 mg/dL (0.67-1.17); Potassium 3.9 mmol/L (3.5-5.0); eGFR CKD-EPI 68.4 (>60)
[2023-07-23 10:29] VITALS: BP 133/70
== END 2023-07-23 12:31 | disposition home or self-care (01) | DRG 243 ==
LOC: ED 18:00 → SUATTDRO 20:39 → EDHOLD 20:39 → ICU 23:51 → MEDTELE 07-22 17:35
PROVIDERS: ADMIT Hospitalist; ATTEND Internal Medicine

== ENCOUNTER 2024-08-17 16:06 | Inpatient (IN) ==
[2024-08-17 16:35] LABS: ABS Basophils 0.1 10^3/uL (0.0-0.1); ABS Eosinophils 0.1 10^3/uL (0.0-0.5); ABS Lymphocytes 1.4 10^3/uL (1.0-4.8); ABS Monocytes 1.5 10^3/uL (0.0-1.1); ABS Neutrophils 7.5 10^3/uL (1.5-7.6); Eosinophil % 1.4 %; Hemoglobin 13.4 g/dL (13.2-16.3); Mean Corpuscular Hemoglobin 31.9 pg (27-33); Mean Corpuscular Hgb Conc 33.5 g/dL (31-36); Mean Corpuscular Volume 95.2 fL (80-97); Mean Platelet Volume 7.4 fL (7.5-11.2); Platelet Count 264 10^3/uL (150-450); Red Cell Distribution Width 16.7 % (12-17); White Blood Count 10.6 10^3/uL (3.6-10.2)
[2024-08-17 16:48] LABS: INR 0.98 (0.85-1.14)
[2024-08-17 17:11] LABS: Albumin 3.9 g/dL (3.2-5.2); Albumin/Globulin Ratio 1.1 (1-3); Creatinine, Serum 1.08 mg/dL (0.67-1.17); Globulin 3.7 g/dL (2-4); Potassium 4.1 mmol/L (3.5-5.0); Total Bilirubin 0.8 mg/dL (0.2-1.0); Total Protein 7.6 g/dL (6.4-8.9); eGFR CKD-EPI 70.2 (>60)
[2024-08-17] MEDS: Heparin DRIP 25,000 UNITS BAG 25,000 UNITS/250 ML BAG IV SCH (18:31)
[2024-08-17] MEDS: Heparin 5000 UNITS/ML 1 mL VIAL IV SCH (18:31)
[2024-08-17 18:49] LABS: High Sensitivity Troponin 1 Hr 7860 pg/mL (<20)
[2024-08-17] MEDS ORDERED: Senna TAB 8.6 mg TAB PO PRN (19:05)
[2024-08-17 19:39] LABS: HDL Cholesterol 58.3 mg/dL
[2024-08-18 07:43] LABS: ABS Basophils 0.1 10^3/uL (0.0-0.1); ABS Eosinophils 0.2 10^3/uL (0.0-0.5); ABS Lymphocytes 1.6 10^3/uL (1.0-4.8); ABS Monocytes 1.5 10^3/uL (0.0-1.1); ABS Neutrophils 5.9 10^3/uL (1.5-7.6); Hematocrit 38.9 % (38-53); Hemoglobin 13.2 g/dL (13.2-16.3); Lymphocyte % 17.7 %; Mean Corpuscular Hemoglobin 32.6 pg (27-33); Mean Platelet Volume 7.6 fL (7.5-11.2); Platelet Count 254 10^3/uL (150-450); Red Blood Count 4.05 10^6/uL (4.06-5.63); Red Cell Distribution Width 16.6 % (12-17); White Blood Count 9.3 10^3/uL (3.6-10.2)
[2024-08-18 09:10] LABS: Calcium 8.6 mg/dL (8.6-10.3); Creatinine, Serum 1.19 mg/dL (0.67-1.17); Magnesium 2.1 mg/dL (1.9-2.7); Potassium 4.3 mmol/L (3.5-5.0); eGFR CKD-EPI 62.5 (>60)
[2024-08-18 09:11] LABS: High Sensitivity Troponin 3 Hr 4584 pg/mL (<20)
[2024-08-18] MEDS: NS 0.9% 1000 ml BAG 1,000 ML IV SCH (10:14)
[2024-08-18] MEDS: Sulfur Hexaflouride MICROSPHR 25 MG VIAL IV PRN (11:23)
[2024-08-18] MEDS ORDERED: Heparin 1,000 UNIT/ML 10 ml (10,000 UNITS) CATHLAB/DIALYSIS ONE (11:52)
[2024-08-18] MEDS ORDERED: Heparin 2 UNITS/ML 1000 mls 2,000 ML IV ONE (11:52)
[2024-08-18] MEDS ORDERED: Midazolam 5 mg/5 ml VIAL 1 mg/ml 5 ml VIAL (5 mg) ONE (11:52)
[2024-08-18] MEDS ORDERED: fentaNYL 100 mcg/2 ml 50 MCG/ML VIAL ONE (11:52)
[2024-08-18] MEDS ORDERED: nitroGLYCERIN DRIP 25,000 MCG/250 ML BTL ONE (11:52)
[2024-08-18] MEDS ORDERED: Lidocaine 1% MPF 5 ML VIAL ONE (11:53)
[2024-08-18] MEDS ORDERED: Iohexol 350 (CONTRAST) 200 ML MDV IV ONE (11:53)
[2024-08-18] MEDS ORDERED: niCARdipine 0.1MG/ML IVPREMIX 20 MG/200 ML BAG IV ONE (11:53)
[2024-08-18] MEDS ORDERED: Naloxone 0.4 mg VIAL 0.4 mg/ml 1 ml VIAL IV PUSH PRN (11:54)
[2024-08-18] MEDS ORDERED: Flumazenil 0.5 mg/5 ml 0.1 MG/ML 5 ml VIAL IV PRN (11:54)
[2024-08-18] MEDS: fentaNYL 100 mcg/2 ml 50 MCG/ML VIAL IV SLOW PU ONE (17:34)
[2024-08-18] MEDS: Midazolam 10 mg/10 ml VIAL 1 mg/ml 10 ml VIAL (10 mg) IV SLOW PU ONE (17:35)
[2024-08-18] MEDS: Sulfur Hexaflouride MICROSPHR 25 MG VIAL ONE (20:28)
[2024-08-18 21:40] VITALS: BP 129/64
== END 2024-08-18 21:25 | disposition short-term general hospital (02) | DRG 282 ==
LOC: EDHOLD 16:06 → ED 16:06 → SUATTDRO 19:05 → MEDTELE 22:53
PROVIDERS: ADMIT Internal Medicine; ATTEND Student in an Organized Health Care Education/Training Program

== ENCOUNTER 2024-08-30 18:52 | Observation (INO) ==
[2024-08-30 19:49] LABS: ABS Eosinophils 0.1 10^3/uL (0.0-0.5); ABS Lymphocytes 0.9 10^3/uL (1.0-4.8); ABS Monocytes 1.4 10^3/uL (0.0-1.1); ABS Neutrophils 10.2 10^3/uL (1.5-7.6); Eosinophil % 0.4 %; Hematocrit 30.3 % (38-53); Hemoglobin 9.9 g/dL (13.2-16.3); Lymphocyte % 7.3 %; Mean Corpuscular Hemoglobin 30.1 pg (27-33); Mean Corpuscular Hgb Conc 32.6 g/dL (31-36); Mean Corpuscular Volume 92.4 fL (80-97); Mean Platelet Volume 8.1 fL (7.5-11.2); Platelet Count 465 10^3/uL (150-450); Red Blood Count 3.28 10^6/uL (4.06-5.63); Red Cell Distribution Width 15.9 % (12-17); White Blood Count 12.6 10^3/uL (3.6-10.2)
[2024-08-30 19:56] LABS: INR 1.15 (0.85-1.14)
[2024-08-30 20:29] LABS: Albumin 3.4 g/dL (3.2-5.2); Albumin/Globulin Ratio 0.9 (1-3); Calcium 8.2 mg/dL (8.6-10.3); Creatinine, Serum 1.22 mg/dL (0.67-1.17); Globulin 3.7 g/dL (2-4); Potassium 4.1 mmol/L (3.5-5.0); Total Bilirubin 0.9 mg/dL (0.2-1.0); Total Protein 7.1 g/dL (6.4-8.9); eGFR CKD-EPI 60.7 (>60)
[2024-08-30 21:16] LABS: High Sensitivity Troponin 1 Hr 321 pg/mL (<20)
[2024-08-30] MEDS ORDERED: Magnesium Hydroxide LIQ 30 ML UDC PO PRN (22:13)
[2024-08-30] MEDS: Heparin 5000 UNITS/ML 1 mL VIAL IV SCH (22:24)
[2024-08-30] MEDS: Heparin DRIP 25,000 UNITS BAG 25,000 UNITS/250 ML BAG IV SCH (22:26)
[2024-08-30 22:35] LABS: ABS Eosinophils 0.1 10^3/uL (0.0-0.5); ABS Lymphocytes 1.1 10^3/uL (1.0-4.8); ABS Monocytes 1.4 10^3/uL (0.0-1.1); ABS Neutrophils 11.9 10^3/uL (1.5-7.6); Eosinophil % 0.4 %; Hematocrit 32.5 % (38-53); Hemoglobin 10.7 g/dL (13.2-16.3); Lymphocyte % 7.8 %; Mean Corpuscular Hemoglobin 30.7 pg (27-33); Mean Corpuscular Volume 93.1 fL (80-97); Platelet Count 463 10^3/uL (150-450); Red Blood Count 3.49 10^6/uL (4.06-5.63); White Blood Count 14.5 10^3/uL (3.6-10.2)
[2024-08-30 22:59] LABS: High Sensitivity Troponin 3 Hr 351 pg/mL (<20)
[2024-08-30 23:29] LABS: Creatinine, Serum 1.18 mg/dL (0.67-1.17); eGFR CKD-EPI 63.2 (>60)
[2024-08-31] MEDS: Remdesivir 100 mg Vial 200 MG in NS 0.9% 250 ml 210 ML IV ONE (00:36)
[2024-08-31 04:56] LABS: ABS Basophils 0.1 10^3/uL (0.0-0.1); ABS Eosinophils 0.1 10^3/uL (0.0-0.5); ABS Lymphocytes 1.4 10^3/uL (1.0-4.8); ABS Monocytes 1.3 10^3/uL (0.0-1.1); ABS Neutrophils 9.1 10^3/uL (1.5-7.6); Eosinophil % 1.2 %; Hematocrit 27.1 % (38-53); Hemoglobin 8.8 g/dL (13.2-16.3); Lymphocyte % 11.4 %; Mean Corpuscular Hemoglobin 30.4 pg (27-33); Mean Corpuscular Hgb Conc 32.7 g/dL (31-36); Mean Corpuscular Volume 93.1 fL (80-97); Platelet Count 396 10^3/uL (150-450); Red Blood Count 2.91 10^6/uL (4.06-5.63); Red Cell Distribution Width 16.1 % (12-17)
[2024-08-31 05:06] LABS: INR 1.22 (0.85-1.14)
[2024-08-31 05:13] LABS: Albumin 2.8 g/dL (3.2-5.2); Albumin/Globulin Ratio 0.9 (1-3); Calcium 7.3 mg/dL (8.6-10.3); Creatinine, Serum 1.05 mg/dL (0.67-1.17); Magnesium 1.8 mg/dL (1.9-2.7); Potassium 4.3 mmol/L (3.5-5.0); Total Bilirubin 0.7 mg/dL (0.2-1.0); Total Protein 5.8 g/dL (6.4-8.9); eGFR CKD-EPI 72.7 (>60)
[2024-08-31] MEDS: Magnesium Sulfate 2 gm BAG 2 GM/50 ML BAG IVPB ONE (09:34)
[2024-08-31] MEDS: Enoxaparin 40 MG/0.4 ML SYR SUBCUT SCH (09:34)
[2024-08-31] MEDS: Sulfur Hexaflouride MICROSPHR 25 MG VIAL IV PRN (09:52)
[2024-08-31 17:19] VITALS: BP 117/66
[2024-08-31] MEDS ORDERED: Remdesivir 100 mg Vial 100 MG in NS 0.9% 250 ml 230 ML IV SCH (21:00)
== END 2024-08-31 17:19 | disposition home or self-care (01) ==
LOC: ED 18:52 → EDHOLD 18:52 → SUATTDRO 22:24 → MEDTELE 08-31 16:17 → EDHOLD 08-31 17:11
PROVIDERS: ADMIT Internal Medicine; ATTEND Hospitalist

== ENCOUNTER 2024-09-12 12:33 | Inpatient (IN) ==
[2024-09-12 12:59] LABS: PO2 Arterial 117 mmHg (80-100)
[2024-09-12 13:01] LABS: PCO2 Arterial <20 mmHg (35-45)
[2024-09-12 13:25] LABS: ABS Basophils 0.1 10^3/uL (0.0-0.1); ABS Eosinophils 0.1 10^3/uL (0.0-0.5); ABS Lymphocytes 0.9 10^3/uL (1.0-4.8); ABS Neutrophils 10.3 10^3/uL (1.5-7.6); ABS Nucleated RBC 0.01 10^3/ul; Eosinophil % 0.4 %; Hematocrit 24.1 % (38-53); Hemoglobin 7.9 g/dL (13.2-16.3); Mean Corpuscular Hgb Conc 32.7 g/dL (31-36); Mean Corpuscular Volume 91.7 fL (80-97); Mean Platelet Volume 7.6 fL (7.5-11.2); Nucleated Red Blood Cells % 0.1 %/100WBC (0.0-0.8); Platelet Count 409 10^3/uL (150-450); Red Blood Count 2.62 10^6/uL (4.06-5.63); Red Cell Distribution Width 15.4 % (12-17); White Blood Count 12.3 10^3/uL (3.6-10.2)
[2024-09-12 13:45] LABS: Albumin 3.2 g/dL (3.2-5.2); Albumin/Globulin Ratio 0.8 (1-3); C Reactive Protein 105.68 mg/L (<8.01); Calcium 8.1 mg/dL (8.6-10.3); Creatinine, Serum 1.46 mg/dL (0.67-1.17); Globulin 3.9 g/dL (2-4); Potassium 4.4 mmol/L (3.5-5.0); Total Bilirubin 0.6 mg/dL (0.2-1.0); Total Protein 7.1 g/dL (6.4-8.9); eGFR CKD-EPI 48.9 (>60)
[2024-09-12] MEDS: Lactated Ringers 1000 ml BAG 1,000 ML IV ONE (14:04)
[2024-09-12] MEDS: Iodixanol 320 (CONTRAST) 100 ML SDV IV ONE (14:31)
[2024-09-12] MEDS: Pantoprazole VIAL 40 MG VIAL IV ONE (15:14)
[2024-09-12 15:59] LABS: High Sensitivity Troponin 1 Hr 30 pg/mL (<20)
[2024-09-12] MEDS: Pantoprazole 80 mg in NS BAG 80 MG/250 ML BAG IV ONE (16:45)
[2024-09-12] MEDS: NS 0.9% 1000 ml BAG 1,000 ML IV SCH (17:45)
[2024-09-12 18:14] LABS: ABS Basophils 0.1 10^3/uL (0.0-0.1); ABS Lymphocytes 1.1 10^3/uL (1.0-4.8); ABS Monocytes 0.7 10^3/uL (0.0-1.1); Eosinophil % 0.2 %; Hematocrit 24.1 % (38-53); Hemoglobin 7.8 g/dL (13.2-16.3); Lymphocyte % 10.9 %; Mean Corpuscular Hemoglobin 30.1 pg (27-33); Mean Corpuscular Hgb Conc 32.5 g/dL (31-36); Mean Corpuscular Volume 92.7 fL (80-97); Mean Platelet Volume 7.7 fL (7.5-11.2); Platelet Count 324 10^3/uL (150-450); Red Cell Distribution Width 15.4 % (12-17); White Blood Count 9.9 10^3/uL (3.6-10.2)
[2024-09-12 18:32] LABS: Ferritin 396.4 ng/mL (24-336)
[2024-09-12 18:37] LABS: Folate 8.6 ng/mL (5.90-24.80)
[2024-09-13 00:20] LABS: Hematocrit 25.5 % (38-53); Hemoglobin 8.4 g/dL (13.2-16.3); Mean Corpuscular Hemoglobin 30.3 pg (27-33); Mean Corpuscular Hgb Conc 32.9 g/dL (31-36); Mean Corpuscular Volume 92.1 fL (80-97); Mean Platelet Volume 7.5 fL (7.5-11.2); Platelet Count 287 10^3/uL (150-450); Red Blood Count 2.76 10^6/uL (4.06-5.63); Red Cell Distribution Width 14.9 % (12-17); White Blood Count 8.9 10^3/uL (3.6-10.2)
[2024-09-13 00:31] LABS: INR 1.16 (0.85-1.14)
[2024-09-13] MEDS: Pantoprazole 80 mg in NS BAG 80 MG/250 ML BAG IV SCH (05:53)
[2024-09-13 06:27] LABS: ABS Basophils 0.1 10^3/uL (0.0-0.1); ABS Eosinophils 0.3 10^3/uL (0.0-0.5); ABS Monocytes 1.4 10^3/uL (0.0-1.1); ABS Neutrophils 6.4 10^3/uL (1.5-7.6); Eosinophil % 3.6 %; Hematocrit 22.5 % (38-53); Hemoglobin 7.9 g/dL (13.2-16.3); Lymphocyte % 10.6 %; Mean Corpuscular Hemoglobin 31.9 pg (27-33); Mean Corpuscular Hgb Conc 35.1 g/dL (31-36); Mean Platelet Volume 7.6 fL (7.5-11.2); Platelet Count 263 10^3/uL (150-450); Red Blood Count 2.47 10^6/uL (4.06-5.63); Red Cell Distribution Width 15.2 % (12-17); White Blood Count 9.1 10^3/uL (3.6-10.2)
[2024-09-13 06:38] LABS: Calcium 7.2 mg/dL (8.6-10.3); Creatinine, Serum 1.18 mg/dL (0.67-1.17); Magnesium 1.9 mg/dL (1.9-2.7); Potassium 4.1 mmol/L (3.5-5.0); eGFR CKD-EPI 63.2 (>60)
[2024-09-13 06:53] LABS: TSH Ultra Thyroid Stim Horm 1.81 mcIU/mL (0.34-5.60)
[2024-09-13 14:55] LABS: Hematocrit 27.7 % (38-53); Hemoglobin 9.5 g/dL (13.2-16.3)
[2024-09-13] MEDS ORDERED: Lidocaine 2% PF 5 ML VIAL ONE (15:55)
[2024-09-13] MEDS ORDERED: Midazolam 2 mg/2 ml VIAL 1 mg/ml 2 ml VIAL (2 mg) ONE (15:55)
[2024-09-13] MEDS ORDERED: Esmolol 10 MG/ML 10 ML (100 mg) IV ONE (16:51)
[2024-09-13] MEDS ORDERED: EPINEPHrine SYR 0.1MG/ML 10 ml SYRINGE IV ONE (17:21)
[2024-09-13 20:02] LABS: Urine Appearance Extra Turbid; Urine Bilirubin Negative (Negative); Urine Blood 2+ (Negative); Urine Color Light-Yellow; Urine Glucose Negative (Negative); Urine Ketones Trace (Negative); Urine Nitrite Negative (Negative); Urine Protein 1+ (>=30 mg/dL) (Negative); Urine Urobilinogen Negative (Negative); Urine pH 5.5 (5.0-8.0)
[2024-09-13 20:35] LABS: Urine Bacteria Absent /HPF (Absent); Urine Red Blood Cell 3+(>10/hpf) /HPF (0-Trace); Urine Squamous Epithelial Cell Present /HPF (Absent); Urine White Blood Cell 3+(>20/hpf) /HPF (0-Trace)
[2024-09-14] MEDS ORDERED: Calamine LOTION BTL TOPICAL PRN (07:55)
[2024-09-14 08:00] LABS: ABS Basophils 0.1 10^3/uL (0.0-0.1); ABS Eosinophils 0.3 10^3/uL (0.0-0.5); ABS Lymphocytes 0.7 10^3/uL (1.0-4.8); ABS Monocytes 1.1 10^3/uL (0.0-1.1); ABS Neutrophils 5.4 10^3/uL (1.5-7.6); Hematocrit 26.1 % (38-53); Lymphocyte % 9.8 %; Mean Corpuscular Hemoglobin 31.1 pg (27-33); Mean Corpuscular Hgb Conc 34.4 g/dL (31-36); Mean Corpuscular Volume 90.2 fL (80-97); Mean Platelet Volume 7.4 fL (7.5-11.2); Platelet Count 248 10^3/uL (150-450); Red Blood Count 2.89 10^6/uL (4.06-5.63); White Blood Count 7.6 10^3/uL (3.6-10.2)
[2024-09-14 08:28] LABS: Albumin 2.4 g/dL (3.2-5.2); Albumin/Globulin Ratio 0.8 (1-3); Calcium 6.9 mg/dL (8.6-10.3); Creatinine, Serum 0.93 mg/dL (0.67-1.17); Globulin 2.9 g/dL (2-4); Magnesium 1.8 mg/dL (1.9-2.7); Total Bilirubin 0.8 mg/dL (0.2-1.0); Total Protein 5.3 g/dL (6.4-8.9)
[2024-09-14] MEDS: Magnesium Sulfate 2 gm BAG 2 GM/50 ML BAG IVPB ONE (10:54)
[2024-09-14] MEDS: Calcium Carb (TUMS) 500 mg CHEW TAB PO SCH (11:20)
[2024-09-14] MEDS: cefTRIAXone 1 gm/50 mL D5W 1 GM/50 ML BAG IV SCH (12:33)
[2024-09-15] MEDS: Pantoprazole 80 mg in NS BAG 80 MG/250 ML BAG IV SCH (00:12)
[2024-09-15 06:36] LABS: ABS Basophils 0.1 10^3/uL (0.0-0.1); ABS Eosinophils 0.2 10^3/uL (0.0-0.5); ABS Lymphocytes 1.1 10^3/uL (1.0-4.8); ABS Monocytes 1.1 10^3/uL (0.0-1.1); ABS Neutrophils 6.8 10^3/uL (1.5-7.6); ABS Nucleated RBC 0.01 10^3/ul; Eosinophil % 2.6 %; Hematocrit 23.5 % (38-53); Hemoglobin 8.1 g/dL (13.2-16.3); Lymphocyte % 12.3 %; Mean Corpuscular Hemoglobin 31.2 pg (27-33); Mean Corpuscular Hgb Conc 34.3 g/dL (31-36); Mean Platelet Volume 7.8 fL (7.5-11.2); Nucleated Red Blood Cells % 0.1 %/100WBC (0.0-0.8); Platelet Count 240 10^3/uL (150-450); Red Blood Count 2.59 10^6/uL (4.06-5.63); Red Cell Distribution Width 15.3 % (12-17); White Blood Count 9.3 10^3/uL (3.6-10.2)
[2024-09-15 07:03] LABS: Albumin 2.4 g/dL (3.2-5.2); Albumin/Globulin Ratio 0.9 (1-3); Creatinine, Serum 1.04 mg/dL (0.67-1.17); Globulin 2.8 g/dL (2-4); Potassium 4.4 mmol/L (3.5-5.0); Total Bilirubin 0.5 mg/dL (0.2-1.0); Total Protein 5.2 g/dL (6.4-8.9); eGFR CKD-EPI 73.5 (>60)
[2024-09-15 15:06] LABS: Hematocrit 24.1 % (38-53)
[2024-09-15] MEDS: Iohexol 350 (CONTRAST) 500 ML MDV IV ONE (18:39)
[2024-09-15 23:48] LABS: Hematocrit 24.9 % (38-53); Hemoglobin 8.5 g/dL (13.2-16.3)
[2024-09-16 05:37] LABS: ABS Basophils 0.1 10^3/uL (0.0-0.1); ABS Eosinophils 0.3 10^3/uL (0.0-0.5); ABS Lymphocytes 1.1 10^3/uL (1.0-4.8); ABS Monocytes 1.3 10^3/uL (0.0-1.1); ABS Neutrophils 7.2 10^3/uL (1.5-7.6); Eosinophil % 3.1 %; Hematocrit 26.5 % (38-53); Hemoglobin 9.1 g/dL (13.2-16.3); Lymphocyte % 11.4 %; Mean Corpuscular Hgb Conc 34.3 g/dL (31-36); Mean Corpuscular Volume 90.4 fL (80-97); Mean Platelet Volume 7.6 fL (7.5-11.2); Platelet Count 206 10^3/uL (150-450); Red Blood Count 2.93 10^6/uL (4.06-5.63); Red Cell Distribution Width 15.4 % (12-17)
[2024-09-16 05:56] LABS: Albumin 2.3 g/dL (3.2-5.2); Albumin/Globulin Ratio 0.8 (1-3); Calcium 7.2 mg/dL (8.6-10.3); Creatinine, Serum 0.9 mg/dL (0.67-1.17); Globulin 2.9 g/dL (2-4); Magnesium 1.9 mg/dL (1.9-2.7); Potassium 4.2 mmol/L (3.5-5.0); Total Bilirubin 0.6 mg/dL (0.2-1.0); Total Protein 5.2 g/dL (6.4-8.9); eGFR CKD-EPI 87.4 (>60)
[2024-09-16 18:13] LABS: Hematocrit 28.9 % (38-53); Hemoglobin 9.8 g/dL (13.2-16.3)
[2024-09-17 07:11] LABS: Hematocrit 24.7 % (38-53); Hemoglobin 8.5 g/dL (13.2-16.3); Mean Corpuscular Hemoglobin 30.9 pg (27-33); Mean Corpuscular Hgb Conc 34.3 g/dL (31-36); Mean Corpuscular Volume 90.2 fL (80-97); Mean Platelet Volume 7.9 fL (7.5-11.2); Platelet Count 219 10^3/uL (150-450); Red Blood Count 2.74 10^6/uL (4.06-5.63); Red Cell Distribution Width 15.5 % (12-17); White Blood Count 9.3 10^3/uL (3.6-10.2)
[2024-09-17 07:25] LABS: Albumin 2.4 g/dL (3.2-5.2); Albumin/Globulin Ratio 0.8 (1-3); Calcium 7.4 mg/dL (8.6-10.3); Creatinine, Serum 0.89 mg/dL (0.67-1.17); Globulin 2.9 g/dL (2-4); Magnesium 1.7 mg/dL (1.9-2.7); Potassium 3.8 mmol/L (3.5-5.0); Total Bilirubin 0.5 mg/dL (0.2-1.0); Total Protein 5.3 g/dL (6.4-8.9); eGFR CKD-EPI 87.7 (>60)
[2024-09-17 08:48] LABS: ABS Basophils 0.1 10^3/uL (0.0-0.1); ABS Eosinophils 0.5 10^3/uL (0.0-0.5); ABS Lymphocytes 1.1 10^3/uL (1.0-4.8); ABS Neutrophils 6.6 10^3/uL (1.5-7.6); Eosinophil % 4.9 %; Lymphocyte % 11.8 %
[2024-09-17] MEDS: Magnesium Sulfate 2 gm BAG 2 GM/50 ML BAG IVPB ONE (09:17)
[2024-09-17 11:37] LABS: Hematocrit 25.9 % (38-53); Hemoglobin 8.5 g/dL (13.2-16.3); Mean Corpuscular Hgb Conc 32.7 g/dL (31-36); Mean Corpuscular Volume 91.7 fL (80-97); Mean Platelet Volume 7.7 fL (7.5-11.2); Platelet Count 221 10^3/uL (150-450); Red Blood Count 2.82 10^6/uL (4.06-5.63); Red Cell Distribution Width 16.2 % (12-17); White Blood Count 9.3 10^3/uL (3.6-10.2)
[2024-09-17] MEDS: Magnesium CITRATE LIQ 300 ML BTL PO ONE (20:10)
[2024-09-17] MEDS: Pantoprazole 80 mg in NS BAG 80 MG/250 ML BAG IV SCH ×2 (21:56→23:24)
[2024-09-18 06:53] LABS: ABS Basophils 0.1 10^3/uL (0.0-0.1); ABS Eosinophils 0.3 10^3/uL (0.0-0.5); ABS Lymphocytes 0.9 10^3/uL (1.0-4.8); Eosinophil % 3.9 %; Hematocrit 24.7 % (38-53); Hemoglobin 8.4 g/dL (13.2-16.3); Lymphocyte % 11.3 %; Mean Corpuscular Hemoglobin 30.9 pg (27-33); Platelet Count 208 10^3/uL (150-450); Red Blood Count 2.72 10^6/uL (4.06-5.63); Red Cell Distribution Width 15.9 % (12-17); White Blood Count 8.3 10^3/uL (3.6-10.2)
[2024-09-18 07:40] LABS: Albumin 2.4 g/dL (3.2-5.2); Albumin/Globulin Ratio 0.8 (1-3); Calcium 7.5 mg/dL (8.6-10.3); Creatinine, Serum 0.92 mg/dL (0.67-1.17); Magnesium 1.7 mg/dL (1.9-2.7); Potassium 3.8 mmol/L (3.5-5.0); Total Bilirubin 0.6 mg/dL (0.2-1.0); Total Protein 5.4 g/dL (6.4-8.9); eGFR CKD-EPI 85.1 (>60)
[2024-09-18] MEDS: Potassium Chlor 20 meq TAB.ER PO ONE (09:00)
[2024-09-18 12:44] LABS: Hematocrit 24.1 % (38-53); Mean Corpuscular Hemoglobin 30.1 pg (27-33); Mean Corpuscular Volume 91.1 fL (80-97); Mean Platelet Volume 7.8 fL (7.5-11.2); Platelet Count 226 10^3/uL (150-450); Red Blood Count 2.64 10^6/uL (4.06-5.63); Red Cell Distribution Width 16.2 % (12-17); White Blood Count 8.7 10^3/uL (3.6-10.2)
[2024-09-18] MEDS: Pantoprazole VIAL 40 MG VIAL IV SCH (17:31)
[2024-09-18] MEDS: Furosemide 40 mg/4 ml IV VIAL IV ONE (17:35)
[2024-09-18] MEDS ORDERED: Furosemide 40 mg/4 ml IV VIAL IV ONE (21:00)
[2024-09-18 21:50] LABS: Hematocrit 28.5 % (38-53); Hemoglobin 9.6 g/dL (13.2-16.3)
[2024-09-19 05:57] LABS: ABS Basophils 0.1 10^3/uL (0.0-0.1); ABS Eosinophils 0.3 10^3/uL (0.0-0.5); ABS Lymphocytes 1.1 10^3/uL (1.0-4.8); ABS Monocytes 1.1 10^3/uL (0.0-1.1); Eosinophil % 4.4 %; Hematocrit 28.2 % (38-53); Hemoglobin 9.5 g/dL (13.2-16.3); Lymphocyte % 14.3 %; Mean Corpuscular Hemoglobin 30.4 pg (27-33); Mean Corpuscular Hgb Conc 33.7 g/dL (31-36); Mean Corpuscular Volume 90.2 fL (80-97); Platelet Count 225 10^3/uL (150-450); Red Blood Count 3.13 10^6/uL (4.06-5.63); Red Cell Distribution Width 15.8 % (12-17); White Blood Count 7.5 10^3/uL (3.6-10.2)
[2024-09-19 06:35] LABS: Calcium 7.4 mg/dL (8.6-10.3); Creatinine, Serum 0.92 mg/dL (0.67-1.17); Magnesium 1.7 mg/dL (1.9-2.7); Potassium 3.9 mmol/L (3.5-5.0); eGFR CKD-EPI 85.1 (>60)
[2024-09-19 09:46] VITALS: BP 101/65
== END 2024-09-19 11:35 | disposition home or self-care (01) | DRG 378 ==
LOC: ED 12:33 → EDHOLD 16:48 → SUATTDRO 16:48 → MEDTELE 19:40
PROVIDERS: ADMIT Internal Medicine; ATTEND Internal Medicine